=== PATIENT | male | born 1955 | race Hispanic/Latino ===

== ENCOUNTER 2017-12-29 15:41 | Outpatient (CLI) | payer BC | END 2017-12-29 15:42 | disposition home or self-care (01) | LOC: BICRAD 15:41 | PROVIDERS: ATTEND Family Medicine | DX: M54.2 Cervicalgia (principal); R05 Cough; R20.2 Paresthesia of skin; M47.896 Other spondylosis, lumbar region; I70.90 Unspecified atherosclerosis | CPT/HCPCS: 71046; 72040 ==

== ENCOUNTER 2018-01-05 14:47 | Outpatient (CLI) | payer BC ==
[2018-01-05] MEDS ORDERED: Iopamidol 370 76% 100 ML VIAL ONE (16:48)
== END 2018-01-05 14:48 | disposition home or self-care (01) ==
LOC: BICCT 14:47
PROVIDERS: ATTEND Family Medicine
DX: R93.8 Abnormal findings on diagnostic imaging of other specified body structures (principal); R91.8 Other nonspecific abnormal finding of lung field
CPT/HCPCS: 71260

== ENCOUNTER 2019-03-22 12:29 | Emergency (ER) | payer BC ==
[2019-03-22] MEDS ORDERED: Lidocaine Viscous Sol 2% 15 ml UD Cup ONE (13:06)
== END 2019-03-22 13:44 | disposition home or self-care (01) ==
LOC: ERS 12:29
DX: T16.2XXA Foreign body in left ear, initial encounter (principal)
CPT/HCPCS: 69200